=== PATIENT | female | born 1995 | race Caucasian/White ===

== ENCOUNTER 2024-03-10 15:20 | Outpatient (CLI) | payer BC | END 2024-03-10 15:21 | disposition home or self-care (01) | LOC: CAM 15:20 | PROVIDERS: ATTEND Naturopath | DX: M54.6 Pain in thoracic spine (principal); Z33.1 Pregnant state, incidental | CPT/HCPCS: 97810; 97811 ==

== ENCOUNTER 2024-03-20 16:02 | Outpatient (CLI) | payer BC | END 2024-03-20 16:03 | disposition home or self-care (01) | LOC: CAM 16:02 | PROVIDERS: ATTEND Naturopath | DX: M54.6 Pain in thoracic spine (principal); Z33.1 Pregnant state, incidental | CPT/HCPCS: 97810; 97811 ==

== ENCOUNTER 2024-04-03 13:47 | Outpatient (CLI) | payer BC | END 2024-04-03 13:48 | disposition home or self-care (01) | LOC: CAM 13:47 | PROVIDERS: ATTEND Naturopath | DX: M54.6 Pain in thoracic spine (principal); Z33.1 Pregnant state, incidental | CPT/HCPCS: 97810; 97811 ==

== ENCOUNTER 2024-04-10 13:00 | Outpatient (CLI) | payer BC | END 2024-04-10 13:01 | disposition home or self-care (01) | LOC: CAM 13:00 | PROVIDERS: ATTEND Naturopath | DX: M54.6 Pain in thoracic spine (principal); Z33.1 Pregnant state, incidental | CPT/HCPCS: 97810; 97811 ==

== ENCOUNTER 2024-04-15 09:22 | Outpatient (CLI) | payer BC | END 2024-04-15 09:23 | disposition home or self-care (01) | LOC: CAM 09:22 | PROVIDERS: ATTEND Naturopath | DX: M54.6 Pain in thoracic spine (principal); Z33.1 Pregnant state, incidental | CPT/HCPCS: 97810; 97811 ==

== ENCOUNTER 2024-04-21 15:45 | Outpatient (CLI) | payer BC | END 2024-04-21 15:46 | disposition home or self-care (01) | LOC: CAM 15:45 | PROVIDERS: ATTEND Naturopath | DX: M54.6 Pain in thoracic spine (principal); Z33.1 Pregnant state, incidental | CPT/HCPCS: 97810; 97811 ==

== ENCOUNTER 2024-05-01 10:57 | Outpatient (CLI) | payer BC | END 2024-05-01 10:58 | disposition home or self-care (01) | LOC: CAM 10:57 | PROVIDERS: ATTEND Naturopath | DX: M54.6 Pain in thoracic spine (principal); Z33.1 Pregnant state, incidental | CPT/HCPCS: 97810; 97811 ==

== ENCOUNTER 2024-05-08 10:58 | Outpatient (CLI) | payer BC | END 2024-05-08 10:59 | disposition home or self-care (01) | LOC: CAM 10:58 | PROVIDERS: ATTEND Naturopath | DX: M54.6 Pain in thoracic spine (principal); Z33.1 Pregnant state, incidental | CPT/HCPCS: 97810; 97811 ==

== ENCOUNTER 2024-05-15 11:09 | Outpatient (CLI) | payer BC | END 2024-05-15 11:10 | disposition home or self-care (01) | LOC: CAM 11:09 | PROVIDERS: ATTEND Naturopath | DX: M54.6 Pain in thoracic spine (principal); Z33.1 Pregnant state, incidental | CPT/HCPCS: 97810; 97811 ==

== ENCOUNTER 2024-05-22 02:11 | Day surgery (SDC) | payer BC ==
[2024-05-22 02:08] LABS: BASOPHILS % (AUTO) 0.2 %; EOSINOPHILS % (AUTO) 0.1 %; HCT - HEMATOCRIT 35.2 % (37.0-47.0); HGB - HEMOGLOBIN 11.9 g/dL (12.0-16.0); LYMPHOCYTES % (AUTO) 6.4 %; MEAN CORPUSCULAR HGB CONC 33.8 g/dL (32.0-36.0); MEAN CORPUSCULAR VOLUME 88.7 fL (81.0-99.0); MEAN PLATELET VOLUME 10.8 fL (7.9-10.8); MONOCYTES % (AUTO) 7.4 %; NEUTROPHILS % (AUTO) 85.4 %; PLT - PLATELET COUNT 208 10^3/uL (130-450); RED BLOOD COUNT 3.97 10^6/uL (4.20-5.40); RED CELL DISTRIBUTION WIDTH 13.1 % (12.0-15.0); WHITE BLOOD COUNT 21.8 x10^3/uL (4.8-10.8)
[2024-05-22 02:11] LABS: ABNORMAL LYMPHS % (MANUAL) 0 %
[~2024-05-22 02:11] MED LIST: cefTRIAXone 1 GM VIAL ONE
[2024-05-22] MEDS: LACTATED RINGERS 1,000 ML IV SCH (02:30)
[2024-05-22 02:33] LABS: BAND NEUTROPHILS % (MANUAL) 10 %; DIFFERENTIAL COMMENT MANUAL DIFFERENTIAL; EOSINOPHILS # (MANUAL) 0.4 10^3/uL (0-0.7); LYMPHOCYTES # (MANUAL) 2.6 10^3/uL (1.5-3.5); LYMPHOCYTES % (MANUAL) 12 %; METAMYELOCYTES % (MANUAL) 1 %; MONOCYTES # (MANUAL) 1.5 10^3/uL (0.0-1.0); MYELOCYTES % (MANUAL) 1 %; NEUTROPHILS # (MANUAL) 16.8 10^3/uL (1.5-6.6); PLATELET ESTIMATE, MANUAL NORMAL (130-450,000) (NORMAL); RBC MORPHOLOGY (MULTIPLE) NORMAL APPEARANCE (NORMAL)
--- NOTE | 2024-05-22 02:33 | HISTORY & PHYSICAL EXAMINATION ---
HPI - Admitted From Admitted from: Direct admit - History of Present Illness HPI Comment/Other: Patient is a 29-year-old G1, P1 who is now day 1, but delivered a few hours ago who presents as a direct admit , now for same-day surgery for fourth degree midline laceration. her is a healthy female weighing over 9 pounds. Bleeding is well-controlled. Patient is tired from a long night, but otherwise doing well. She delivered late last night and a home with Joann Mullen who accompanies her today. Previous surgeries ACL repair Past medical history Unremarkable Family history Noncontributory Medications None Allergies Latex Physical Exam Constitutional: alert, no acute distress, well hydrated, well developed, well nourished, appropriate dress. Cardiovascular: Regular rate and rhythm. Respiratory: no respiratory distress. Abdomen: nondistended, nontender, no guarding. Psych: affect and mood appropriate, normal interaction, good eye contact. Tired, but alert. : Patient not tolerating exam well, but tender, perineum. Limited exam, but tear at least several centimeters in length through rectum to vagina. Assessment and plan Fourth degree midline laceration -Admit for surgery. Possible discharge later today versus overnight stay. -Discussed the risk, benefits, alternatives to surgical management of lace ration. -2 g cefotetan prior to surgery. -Discussed avoiding constipation and opioids. Should have high-fiber low residual diet. -Plan for stool softeners day 1 -Routine care. Social & Family Hx - Social History Smoking Status: Unknown if ever smoked Meds/Allgy - Allergies Allergies/Adverse Reactions: Allergies Allergy/AdvReac Type Severity Reaction Status Date / Time latex Allergy Hives Verified 05/22/24 02:13 Exam - Vital Signs Vital Signs: Vital Signs x48h Temp Pulse Resp BP 05/22/24 02:02 98.2 F 96 18 122/74 Results - Lab Results Fish Bones: 05/22/24 01:50 Other Lab Results: Lab Results x24hrs 05/22/24 Range/Units 01:50 WBC 21.8 H (4.8-10.8) x10^3/uL RBC 3.97 L (4.20-5.40) 10^6/uL Hgb 11.9 L (12.0-16.0) g/dL Hct 35.2 L (37.0-47.0) % MCV 88.7 (81.0-99.0) fL MCH 30.0 (27.0-31.0) pg MCHC 33.8 (32.0-36.0) g/dL RDW 13.1 (12.0-15.0) % Plt Count 208 (130-450) 10^3/uL MPV 10.8 (7.9-10.8) fL
[2024-05-22] MEDS ORDERED: CEFOTETAN DISODIUM 1 GM VIAL ONE ×2 (02:38→02:52)
[2024-05-22] MEDS ORDERED: fentaNYL 100 MCG/2 ML VIAL ONE (02:43)
[2024-05-22] MEDS ORDERED: MIDAZOLAM 2 MG/2 ML VIAL ONE (02:43)
[2024-05-22] MEDS ORDERED: PROPOFOL 200 MG/20 ML VIAL IVP ONE (02:44)
[2024-05-22] MEDS ORDERED: LIDOCAINE-PF 2% 10 ML AMP SUBQ ONE (02:44)
[2024-05-22] MEDS ORDERED: cefTRIAXone 1 GM in SODIUM CHLORIDE 0.9% MINIBAG 100 ML IV ONE (03:00)
[2024-05-22] MEDS: CEFOTETAN DISODIUM 2 GM in SODIUM CHLORIDE 0.9% MINIBAG 100 ML IV ONE (03:05)
[2024-05-22] MEDS ORDERED: BUPIVACAINE 0.25% PF 30 ML VIAL ONE (03:07)
[2024-05-22] MEDS ORDERED: ACETAMINOPHEN 1,000 MG/100 ML 1,000 MG/100 ML BAG IV ONE (03:48)
[2024-05-22] MEDS ORDERED: SUGAMMADEX 200 MG/2 ML VIAL IVP ONE (03:49)
[2024-05-22] MEDS ORDERED: ONDANSETRON 4 MG/2 ML VIAL ONE (03:50)
--- NOTE | 2024-05-22 04:03 | ANESTHESIA ---
Pre-Anesthesia VS, & Labs - Diagnosis 4th degree tear - Procedure ant/post repair, colporrhaphy Vital Signs: Temp Pulse Resp BP Pulse Ox O2 Flow Rate 36.8 C 96 18 122/74 99 05/22/24 02:02 05/22/24 02:02 05/22/24 02:02 05/22/24 02:02 05/22/24 01:45 Height: 5 ft 9 in Weight (kg): 92.986 kg Body Mass Index: 30.2 BMI Classification: Obese - NPO Other (7 hrs) - Is Patient ?: No Comments:: pt delivered approx 4hrs prior to OR time - Lab Results Current Lab Results: Laboratory Tests 05/22/24 03:12: Blood Type Recheck O POSITIVE 05/22/24 01:50: WBC 21.8 H, RBC 3.97 L, Hgb 11.9 L, Hct 35.2 L, MCV 88.7, MCH 30.0, MCHC 33.8, RDW 13.1, Plt Count 208, MPV 10.8, Neut # (Auto) Not Reportable, Lymph # (Auto) Not Reportable, [place] # (Auto) Not Reportable, Eos # (Auto) Not Reportable, Baso # (Auto) Not Reportable, Absolute Nucleated RBC Not Reportable, Total Counted 100, Band Neuts % (Manual) 10, Abnorm Lymph % (Manual) 0, Metamyelocytes % 1 H, Myelocytes % 1 H, Nucleated RBC % Not Reportable, Neutrophils # (Manual) 16.8 H, Lymphocytes # (Manual) 2.6, Monocytes # (Manual) 1.5 H, Eosinophils # (Manual) 0.4, Basophils # (Manual) 0.0, Differential C omment MANUAL DIFFERENTIAL, Platelet Estimate NORMAL (130-450,000), RBC Morph Micro Appear NORMAL APPEARANCE 05/22/24 01:50: Blood Type O POSITIVE, Antibody Screen NEGATIVE Lab results reviewed: Yes Fish Bones: 05/22/24 01:50 Home Medications and Allergies Active Medications Lactated Ringer's (Lr) 1,000 mls @ 100 mls/hr IV .Q10H TODD Last Admin: 05/22/24 02:30 Dose: 100 mls/hr Allergies/Adverse Reactions: Allergies Allergy/AdvReac Type Severity Reaction Status Date / Time latex Allergy Hives Verified 05/22/24 02:13 Anes History & Medical History - Anesthetic History Anesthesia Complications: reports: No previous complications Family history of Anesthesia Complications: Denies Family history of Malignant Hyperthermia: Denies - Medical History Cardiovascular: reports: None Pulmonary: reports: None Gastrointestinal: reports: None Urinary: reports: None Neuro: reports: None Musculoskeletal: reports: None Blood Disorders: reports: None Skin: reports: None Smoking Status: Unknown if ever smoked Psychosocial: reports: No issues indicated History of Cancer?: No - Surgical History Orthopedic: reports: ACL reconstruction - Obstetrical History Events: reports: None, Other (home ) Complications: reports: None, Other (4th degree tear) Exam General: Alert, Oriented x3, Cooperative Dental: WNL Mouth Openin Fingerbreadth Neck Mobility: Normal Mallampati classification: I Thyromental Distance: 4-6 cm Respiratory: Lungs clear Cardiovascular: Regular rate Plan Anesthesia Type: General Consent for Procedure(s) Verified and Reviewed: Yes Code Status: Attempt Resuscitation ASA classification: 2-Mild systemic disease Is this case an emergency?: Yes
[2024-05-22] MEDS ORDERED: METOCLOPRAMIDE 10 MG/2 ML VIAL IVP PRN (04:06)
[2024-05-22] MEDS ORDERED: fentaNYL 100 MCG/2 ML VIAL IVP PRN (04:06)
[2024-05-22] MEDS ORDERED: ONDANSETRON 4 MG/2 ML VIAL IVP PRN (04:06)
[2024-05-22] MEDS ORDERED: NALOXONE 0.4 MG/ML VIAL IVP PRN (04:06)
[2024-05-22] MEDS ORDERED: MORPHINE 2 MG/ML CARPUJECT IVP PRN (04:06)
[2024-05-22] MEDS ORDERED: ePHEDrine 50 MG/ML VIAL IVP PRN (04:06)
[2024-05-22] MEDS ORDERED: ATROPINE ABBOJECT 1 MG/10 ML SYRINGE IVP PRN (04:06)
[2024-05-22] MEDS ORDERED: HYDROmorphone 0.5 MG/0.5 ML SYRINGE IVP PRN (04:06)
[2024-05-22] MEDS: BUPIVACAINE 0.25% PF 30 ML VIAL SUBQ ONE ×2 (04:10)
[2024-05-22] MEDS: LACTATED RINGERS 1,000 ML IV ONE (04:56)
[2024-05-22] MEDS ORDERED: CALCIUM CARBONATE CHEW 500 MG TABLET PO PRN (04:57)
[2024-05-22] MEDS ORDERED: HYDROCORTISONE 1% CREAM 28 GM TUBE TOP PRN (04:57)
[2024-05-22] MEDS ORDERED: LACTATED RINGERS 1,000 ML IV SCH (05:00)
--- NOTE | 2024-05-22 05:07 | OPERATIVE REPORT ---
Operative Report - General Procedure Date: 05/22/24 Planned Procedure: Fourth degree midline laceration repair Pre-Op Diagnosis: Fourth degree midline laceration Procedure Performed: Fourth degree midline laceration repair Post Op Diagnosis: Fourth degree midline laceration - Procedure Note Primary Surgeon: Vishal Pacheco MD Secondary Surgeon: MEMO Schumacher Anesthesia Provider: Yoko Krishna CRNA Anesthesia Technique: Combo spinal/epidural Pathology: None Estimated Blood Loss (mL): 200 Urine Output (mL): 500 Findings: Fourth degree midline laceration extending rectal mucosa approximately 4 cm. Edematous vulva. Complications: None - Other Other Information/Narrative: After informed consent was obtained, patient was taken to the operating room where general anesthesia was obtained. She received 2 g of cefotetan preoperatively. Patient was prepped and draped in sterile fashion using Betadine in the perineum. Straight catheter was performed draining the bladder. Using a [place] retractor, the vaginal laceration was exposed. The previous sutures were cut and removed. The external anal sphincters were identified and grasped with Allis clamps. Using a 3-0 Vicryl, the rectal mucosa was gently grasped with atraumatic forceps and closed in a running fashion with a gloved hand in the rectum identifying the space until the anal verge. Next the internal anal sphincter was reapproximated with 2 horizontal mattress sutures. At that point the external anal sphincter was reapproximated, and an end-to-end anastomosis was performed which initially was performed in a posterior, anterior, superior, anterior fashion, but this appeared to need an additional superior stitch to properly reapproximate. At this point, I performed another rectal exam to ensure no sutures penetrated the rectum. The bulbocavernosus muscles were then reapproximated. The second-degree portion of the repair was then performed to find the apex of the vaginal tear and closing with a running locked suture until the transition point. The perineum muscles were then reapproximated and the incision was taken to the apex then a subcuticular stitch was performed bringing the skin edges together, transitioning back into the vagina before time. An additional rectal exam was performed without feeling sutures penetrating the rectal mucosa. Sponge and needle counts were correct and the patient was taken the PACU in good condition. I appreciate the assistance of MEMO Schumacher for help visualizing and assisting with this difficult repair.
--- NOTE | 2024-05-22 05:27 | ANESTHESIA POST OP EVALUATION ---
Anesthesia Post Eval - Post Anesthesia Eval Vitals: Last Vital Signs Temp 36.8 C 05/22/24 05:23 Pulse 91 05/22/24 05:23 Resp 16 05/22/24 05:23 BP 123/71 05/22/24 05:23 Pulse Ox 95 05/22/24 05:23 O2 Flow Rate CV Function Including HR & BP: Stable Pain Control: Satisfactory Nausea & Vomiting: Negative Mental Status: Baseline Respiratory Status: Airway Patent Hydration Status: Satisfactory Anesthesia Complications: None
[2024-05-22] MEDS ORDERED: PSYLLIUM PACKET PO PRN (05:48)
[2024-05-22] MEDS ORDERED: polyethylene glycoL 3350 17 GM PACKET PO PRN (05:50)
[2024-05-22] MEDS ORDERED: PHENOL THROAT SPRAY 177 ML MM PRN (05:56)
[2024-05-22] MEDS: IBUPROFEN 600 MG TABLET PO SCH (06:29)
[2024-05-22 08:13] VITALS: O2SAT 98
[2024-05-22] MEDS: ACETAMINOPHEN 325 MG TABLET PO PRN (09:37)
[2024-05-22] MEDS: DOCUSATE SODIUM 100 MG CAPSULE PO SCH (09:38)
[2024-05-22] MEDS ORDERED: ACETAMINOPHEN 500 MG TABLET PO PRN (10:00)
--- NOTE | 2024-05-22 11:08 | Discharge Plan ---
Discharge Plan Problem Reviewed?: Yes Disposition: Home, Self Care Condition: Good Prescriptions: Docusate Sodium 100Mg Capsule [Colace 100Mg Capsule] 100 mg PO BID #60 cap Ibuprofen [Motrin] 600 mg PO Q6HR #30 tab Diet: Regular No Smoking: If you smoke, Please STOP! Call for help.
--- NOTE | 2024-05-22 11:10 | Discharge Plan ---
Discharge Plan Problem Reviewed?: Yes Disposition: Home, Self Care Condition: Good Prescriptions: Docusate Sodium 100Mg Capsule [Colace 100Mg Capsule] 100 mg PO BID #60 cap Ibuprofen [Motrin] 600 mg PO Q6HR #30 tab Diet: Regular (High fiber) Shower Restrictions: No No Smoking: If you smoke, Please STOP! Call for help. Follow-up with: Vishal Pacheco MD [Provider Admit Priv/Credential] -
[2024-05-22 11:27] VITALS: BP 121/68
== END 2024-05-22 11:53 | disposition home or self-care (01) ==
LOC: WFO 02:11 → FBP 02:11 → WFO 11:53
PROVIDERS: ATTEND Obstetrics & Gynecology
DX: O70.3 Fourth degree perineal laceration during delivery (principal)
CPT/HCPCS: 59300; 85025; 86850; 86900; 86901; A9270; J0131; J7120

== ENCOUNTER 2024-06-03 13:04 | Outpatient (CLI) | payer BC | END 2024-06-03 13:05 | disposition home or self-care (01) | LOC: CAM 13:04 | PROVIDERS: ATTEND Naturopath | DX: M54.6 Pain in thoracic spine (principal); Z33.1 Pregnant state, incidental | CPT/HCPCS: 97810; 97811 ==

== ENCOUNTER 2024-06-24 10:27 | Outpatient (CLI) | payer BC | END 2024-06-24 10:28 | disposition home or self-care (01) | LOC: CAM 10:27 | PROVIDERS: ATTEND Naturopath | DX: M54.6 Pain in thoracic spine (principal); Z33.1 Pregnant state, incidental | CPT/HCPCS: 97810; 97811 ==

== ENCOUNTER 2024-07-08 10:51 | Outpatient (CLI) | payer BC | END 2024-07-08 10:52 | disposition home or self-care (01) | LOC: CAM 10:51 | PROVIDERS: ATTEND Naturopath | DX: M54.6 Pain in thoracic spine (principal) | CPT/HCPCS: 97810; 97811 ==